=== PATIENT | male | born 1975 | race Caucasian/White ===

== ENCOUNTER 2018-12-19 05:30 | Emergency (ER) | payer OTHER ==
[~2018-12-19] VITALS: Ht 170.2 cm; Wt 80.2 kg
[2018-12-19] MEDS ORDERED: KETOROLAC 30 MG/1 ML ONE (05:49)
[2018-12-19] MEDS ORDERED: MORPHINE SULFATE 4 MG/ML, 1ML ONE (05:49)
[2018-12-19] MEDS ORDERED: ONDANSETRON 2MG/ML, 2ML ONE (05:49)
[2018-12-19] MEDS ORDERED: ONDANSETRON 2MG/ML, 2ML IVPush ONE (06:00)
[2018-12-19] MEDS ORDERED: SODIUM CHLORIDE FLUSH 10ML SYR IVF ONE (06:00)
[2018-12-19] MEDS ORDERED: KETOROLAC 30 MG/1 ML IVPush ONE (06:00)
[2018-12-19] MEDS ORDERED: MORPHINE SULFATE 4 MG/ML, 1ML IVPush PRN (06:00)
--- NOTE | 2018-12-19 06:00 | NUR ---
first contact with pt. pt c/o mid back to right flank pain x 30 mins. Hx of Kidney stone. pt denies any other s/s at this time. bp/spo2 monitors in place. call light within reach. edmd at [facility] to assess at this time. pt's aox4. resps even and unlabored.
--- NOTE | 2018-12-19 06:03 | NUR ---
pt medicated per emar. pt tolerated well.
--- NOTE | 2018-12-19 06:20 | NUR ---
pt to ct now.
--- NOTE | 2018-12-19 06:20 | NUR ---
urine cup at [facility].
[2018-12-19 06:24] LABS: ALBUMIN 2.8 g/dL (3.4-5.0); ANION GAP 6 mmol/L (5-15); BASOPHILS # (AUTO) 0.02 x10^3/uL (0-0.1); BASOPHILS % (AUTO) 0 % (0-1); CHLORIDE 115 mmol/L (98-107); CREATININE 0.69 mg/dL (0.7-1.3); EOSINOPHILS # (AUTO) 0.07 x10^3/uL (0-0.4); EOSINOPHILS % (AUTO) 1 % (1-7); LYMPHOCYTES # (AUTO) 1.12 x10^3/uL (1-3.4); LYMPHOCYTES % (AUTO) 22 % (22-44); MD NO; MEAN CORPUSCULAR HEMOGLOBIN 29.6 pg (27.5-34.5); MEAN CORPUSCULAR HGB CONC 33.6 g/dL (33.2-36.2); MEAN CORPUSCULAR VOLUME 88.2 fL (81-97); MEAN PLATELET VOLUME 9.8 fL (7.4-10.4); MONOCYTES # (AUTO) 0.49 x10^3/uL (0.2-0.8); MONOCYTES % (AUTO) 10 % (2-9); NEUTROPHILS # (AUTO) 3.35 x10^3/uL (1.8-6.8); NEUTROPHILS % (AUTO) 66 % (42-75); PLATELET COUNT 135 x10^3/uL (130-400); RED BLOOD COUNT 3.32 x10^6/uL (4.38-5.82); RED CELL DISTRIBUTION WIDTH 12.6 % (9.4-14.8)
--- NOTE | 2018-12-19 06:35 | NUR ---
pt back to room from ct now.
--- NOTE | 2018-12-19 06:51 | NUR ---
pt amb to br and back to room with steady gait. ua sent.
--- NOTE | 2018-12-19 07:03 | NUR ---
report given to lisa ambriz.
--- NOTE | 2018-12-19 07:03 | NUR ---
RECEIVED REPORT FROM VIJAY PENNINGTON RN. PT RESTING ON GURTRISHA. ELSA. VSS. PT VERBALIZES PAIN NOW AT 0/10.
[2018-12-19 07:13] LABS: MICROSCOPIC AUTO
[2018-12-19 07:16] LABS: CULTURE INDICATED? NO
--- NOTE | 2018-12-19 07:19 | NUR ---
PT CHART REVIEWED AND PLACED FOR RECHECK.
[2018-12-19 08:15] VITALS: BP 117/76
== END 2018-12-19 08:45 | disposition home or self-care (01) ==
LOC: ED 06:13
DX: N13.2 Hydronephrosis with renal and ureteral calculous obstruction (principal)
CPT/HCPCS: 36415; 74018; 74176; 80048; 81001; 82040; 85025; 96374; 96375; 99284; J1885; J2405

== ENCOUNTER 2019-07-07 22:52 | Emergency (ER) | payer OTHER ==
[~2019-07-07] VITALS: Ht 167.6 cm; Wt 82.1 kg
--- NOTE | 2019-07-07 23:00 | NUR ---
EKG DONE IN TRIAGE
[2019-07-07] MEDS ORDERED: ONDANSETRON 2MG/ML, 2ML IVPush ONE (23:30)
[2019-07-07] MEDS ORDERED: SODIUM CHLORIDE FLUSH 10ML SYR IVF ONE (23:30)
[2019-07-07] MEDS ORDERED: MORPHINE SULFATE 4 MG/ML, 1ML IVPush PRN (23:30)
[2019-07-07] MEDS ORDERED: ASPIRIN 81 MG TABLET CHEW PO ONE (23:30)
[2019-07-08 00:22] LABS: BASOPHILS # (AUTO) 0.03 x10^3/uL (0-0.1); BASOPHILS % (AUTO) 0 % (0-1); EOSINOPHILS # (AUTO) 0.13 x10^3/uL (0-0.4); EOSINOPHILS % (AUTO) 2 % (1-7); LYMPHOCYTES # (AUTO) 1.73 x10^3/uL (1-3.4); LYMPHOCYTES % (AUTO) 19 % (22-44); MD NO; MEAN CORPUSCULAR VOLUME 90.8 fL (81-97); MEAN PLATELET VOLUME 9.3 fL (7.4-10.4); MONOCYTES # (AUTO) 0.63 x10^3/uL (0.2-0.8); MONOCYTES % (AUTO) 7 % (2-9); NEUTROPHILS # (AUTO) 6.78 x10^3/uL (1.8-6.8); NEUTROPHILS % (AUTO) 73 % (42-75); PLATELET COUNT 187 x10^3/uL (130-400); RED BLOOD COUNT 4.22 x10^6/uL (4.38-5.82); RED CELL DISTRIBUTION WIDTH 12.4 % (9.4-14.8)
--- NOTE | 2019-07-08 00:25 | NUR ---
PT HERE FOR FLANK PAIN. PT REPORTS HX OF KIDNEY PROBLEMS AND KIDNEY STONES. PT RECENTLY HAD A NJ SO PT HAS STRICT REQUIRMENTS SO HE DOES NOT GET HIS ANGIOGRAM DELAYED PER HIM. PT CONNECTED TO MONITORS AND CALL LIGHT IN REACH. AWAITING FURTHER ORDERS. VSS.
[2019-07-08 00:27] LABS: ALBUMIN 3.6 g/dL (3.4-5.0); ANION GAP 5 mmol/L (5-15); CALCIUM 8.5 mg/dL (8.5-10.1); CHLORIDE 107 mmol/L (98-107)
--- NOTE | 2019-07-08 00:27 | NUR ---
REPORT TO HUI MULLEN
--- NOTE | 2019-07-08 00:27 | NUR ---
ASSUMED CARE OF PT, REPORT FROM ALBERT
[2019-07-08 00:33] LABS: ALANINE AMINOTRANSFERASE 47 U/L (12-78); ALKALINE PHOSPHATASE 95 U/L (45-117); BILIRUBIN,TOTAL 0.5 mg/dL (0.2-1.0); CREATININE 0.95 mg/dL (0.7-1.3); TOTAL PROTEIN 7.4 g/dL (6.4-8.2); TROPONIN I < 0.015 ng/mL (0.000-0.045)
--- NOTE | 2019-07-08 00:36 | NUR ---
pt refused CT.
[2019-07-08] MEDS ORDERED: ASPIRIN 81 MG TABLET CHEW ONE (00:38)
[2019-07-08] MEDS ORDERED: MORPHINE SULFATE 4 MG/ML, 1ML ONE (00:39)
[2019-07-08] MEDS ORDERED: ONDANSETRON 2MG/ML, 2ML ONE (00:43)
--- NOTE | 2019-07-08 01:09 | NUR ---
REPORT TO CANDIDO
--- NOTE | 2019-07-08 01:21 | NUR ---
PT AWARE A UA IS NEEDED. PT STATES UNABLE TO GO AT THIS TIME. PT GIVEN WATER PER REQUEST. AWAITING SONO AT THIS TIME.
--- NOTE | 2019-07-08 01:25 | NUR ---
PT DECLINING STRAIGHT CATH AT THIS TIME.
--- NOTE | 2019-07-08 01:57 | NUR ---
PT ATTEMPTING UA AT THIS TIME.
[2019-07-08 02:17] LABS: MICROSCOPIC INDICATED
[2019-07-08 02:42] LABS: CULTURE INDICATED? NO
[2019-07-08 04:02] VITALS: BP 126/72
== END 2019-07-08 04:05 | disposition home or self-care (01) ==
LOC: ED 07-08 02:56
DX: N13.2 Hydronephrosis with renal and ureteral calculous obstruction (principal); R07.9 Chest pain, unspecified
CPT/HCPCS: 36415; 76770; 80053; 81001; 84484; 85025; 93005; 96374; 96375; 99284; J2270; J2405

== ENCOUNTER 2019-10-17 15:45 | Emergency (ER) | payer OTHER ==
[~2019-10-17] VITALS: Ht 167.6 cm; Wt 80.4 kg
[2019-10-17] MEDS ORDERED: KETOROLAC 30 MG/1 ML ONE (16:25)
[2019-10-17] MEDS ORDERED: PROCHLORPERAZINE 5 MG/ML, 2ML ONE (16:25)
[2019-10-17] MEDS ORDERED: PROCHLORPERAZINE 5 MG/ML, 2ML IVPush ONE (16:30)
[2019-10-17] MEDS ORDERED: KETOROLAC 30 MG/1 ML IVPush ONE (16:30)
[2019-10-17] MEDS ORDERED: SODIUM CHLORIDE FLUSH 10ML SYR IVF ONE (16:30)
--- NOTE | 2019-10-17 16:37 | NUR ---
PT WITH C/O MID/EPIGASTRIC ABD PAIN, PT RATES PAIN 10/10. PT WITH C/O NAUSEA. PT DENIES V/D. PT STATES THIS HAS BEEN HAPPENING FOR 2 HOURS. PT TO BP, CONT PULSE OX. PIV INITIATED PT. MEDICATED PER MAR
[2019-10-17 16:41] LABS: BASOPHILS # (AUTO) 0.01 x10^3/uL (0-0.1); BASOPHILS % (AUTO) 0 % (0-1); EOSINOPHILS % (AUTO) 0 % (1-7); LYMPHOCYTES # (AUTO) 0.46 x10^3/uL (1-3.4); LYMPHOCYTES % (AUTO) 9 % (22-44); MD NO; MEAN CORPUSCULAR HEMOGLOBIN 29.6 pg (27.5-34.5); MEAN CORPUSCULAR HGB CONC 33.3 g/dL (33.2-36.2); MEAN CORPUSCULAR VOLUME 88.9 fL (81-97); MONOCYTES # (AUTO) 0.45 x10^3/uL (0.2-0.8); MONOCYTES % (AUTO) 9 % (2-9); NEUTROPHILS # (AUTO) 3.91 x10^3/uL (1.8-6.8); NEUTROPHILS % (AUTO) 81 % (42-75); PLATELET COUNT 185 x10^3/uL (130-400); RED BLOOD COUNT 4.56 x10^6/uL (4.38-5.82); RED CELL DISTRIBUTION WIDTH 12.9 % (9.4-14.8)
[2019-10-17 16:54] LABS: ALANINE AMINOTRANSFERASE 31 U/L (12-78); ANION GAP 8 mmol/L (5-15); CHLORIDE 105 mmol/L (98-107); CREATININE 0.92 mg/dL (0.7-1.3)
[2019-10-17 16:56] LABS: ALKALINE PHOSPHATASE 103 U/L (45-117); BILIRUBIN,TOTAL 0.4 mg/dL (0.2-1.0); TOTAL PROTEIN 8.2 g/dL (6.4-8.2)
[2019-10-17 17:56] VITALS: BP 118/62
--- NOTE | 2019-10-17 17:57 | NUR ---
PT NOW RESTING COMFORTABLY ON GURTRISHA, VSS, NAD. PT TO DC
== END 2019-10-17 18:12 | disposition home or self-care (01) ==
LOC: ED 17:30
DX: J10.1 Influenza due to other identified influenza virus with other respiratory manifestations (principal); R11.0 Nausea; R10.9 Unspecified abdominal pain
CPT/HCPCS: 36415; 76700; 80053; 83690; 85025; 96374; 96375; 99284; J0780; J1885